=== PATIENT | female | born 1965 | race Caucasian/White ===

== ENCOUNTER 2020-03-31 15:48 | Emergency (ER) | payer MEDICAID ==
[~2020-03-31] VITALS: Ht 165.1 cm; Wt 68.0 kg
[2020-03-31 15:50] VITALS: BP_SYST 108
--- NOTE | 2020-03-31 15:50 | NUR ---
Placed in room 2 . Placed on personnel monitor, blood pressure machine and pulse oximeter. To gown for exam. Side rails up.
[2020-03-31] MEDS ORDERED: NACL 0.9% 1,000 ML IV ONE (15:52)
--- NOTE | 2020-03-31 16:02 | NUR ---
Patient arrived via ALS ambulance for near syncope. Patient AAOx4, and ambulatory with steady gait. Patient states she was at work, patient states she was feeling weak, but no LOC. Fellow co-workers called EMS regarding patient status. Will continue to follow up and monitor.
--- NOTE | 2020-03-31 16:10 | NUR ---
ER at bedside examining patient.
[2020-03-31 16:12] LABS: BASOPHILS % (AUTO) 0.3 % (0.0-2.0); HEMOGLOBIN 13.3 g/dL (12.0-16.0); LYMPHOCYTES % (AUTO) 24.9 % (20.5-51.5); MEAN CORPUSCULAR HEMOGLOBIN 30 pg (27-31); MEAN CORPUSCULAR HGB CONC 34 % (32-36); MEAN CORPUSCULAR VOLUME 89 fL (79.0-98.0); MONOCYTES # (AUTO) 0.5 K/uL (0.0-1.0); NEUTROPHILS # (AUTO) 2.7 K/uL (1.8-7.7); NEUTROPHILS % (AUTO) 63.8 % (40.0-70.0); PLATELET COUNT (AUTO) 193 K/uL (130-430); RED BLOOD CELL COUNT(AUTO) 4.39 MIL/uL (4.2-6.2); RED CELL DISTRIBUTION WIDTH 12.9 % (9.0-15.0); WHITE BLOOD COUNT (AUTO) 4.2 K/uL (4.8-10.8)
[2020-03-31 16:45] LABS: PROTHROMBIN TIME 9.9 SECS (9.5-12.5)
[2020-03-31 16:51] LABS: CALCIUM 8.1 mg/dL (8.4-11.0); CREATININE 0.93 mg/dL (0.55-1.30); POTASSIUM 3.4 mmol/L (3.5-5.1)
[2020-03-31 16:56] LABS: BILIRUBIN,URINE NEGATIVE (NEGATIVE); CLARITY/URINE CLEAR (CLEAR); COLOR,URINE YELLOW (YELLOW); GLUCOSE,URINE NEGATIVE (NEGATIVE); KETONES,URINE TRACE (NEGATIVE); LEUKOCYTE ESTERASE ,URINE NEGATIVE (NEGATIVE); NITRITE, URINE NEGATIVE (NEGATIVE); PROTEIN URINE TRACE (NEGATIVE); UROBILINOGEN,URINE 0.2 (0.2-1.0)
[2020-03-31 16:57] LABS: ALBUMIN 3.9 g/dL (3.4-4.8); TOTAL BILIRUBIN 0.3 mg/dL (0.0-1.0)
--- NOTE | 2020-03-31 16:59 | NUR ---
DAUGHTER OF PT REQUESTED CALL FOR ANY UPDATES JHON [phone]
[2020-03-31 17:15] LABS: BLOOD, URINE TRACE (NEGATIVE)
[2020-03-31 17:28] LABS: BACTERIA,URINE FEW /HPF (None Seen); RBC,URINE 0-3 /HPF (0-3); WBC,URINE 0-3 /HPF (0-3)
[2020-03-31] MEDS ORDERED: KETOROLAC TROMETHAMINE 30 MG VIAL IVP ONE (17:45)
--- NOTE | 2020-03-31 17:50 | NUR ---
Pt refused pain medication, states she does not need the medication
[2020-03-31 18:06] VITALS: BP_SYST 108
== END 2020-03-31 18:06 | disposition home or self-care (01) ==
LOC: SED 15:48
DX: R55 Syncope and collapse (principal); R42 Dizziness and giddiness
CPT/HCPCS: 36415; 71045; 80053; 81000; 82150; 82550; 83605; 83690; 83880; 84484; 85025; 85610; 85730; 87040; 93005; 96360; 99285; J1885; J7030